=== PATIENT | female | born 1975 | race Two or more races ===

== ENCOUNTER → 2017-04-14 | Outpatient (CLI) | payer OTHER ==
[~2017-04-14] MED LIST: CONRAY-43 43% 50ML VIAL (Q9960) As Ordered ONE; PROHANCE 279.3MG/ML 5ML VIAL (A9576) As Ordered ONE
--- NOTE | 2017-04-14 10:33 | REP ---
MRI shoulder without and with contrast arthrogram 04/14/2017. No comparison study. Clinical history. Chronic left shoulder pain with limited range of motion and instability. Technique: Precontrast coronal T1 with T2 fat suppressed coronal, axial and sagittal sequences. Following gadolinium arthrogram injection, axial 3-D WATS gradient echo, fat suppressed T1 axial, coronal, 8 meters sequence with fat suppressed T2 coronal as well. Findings: The AC joint shows no hypertrophy or impingement. There is some very minimal downsloping of the acromion. At the musculotendinous junction of the rotator cuff, there is hyperintense signal on the T2 sequence vertically and some intrasubstance linear signal in the tendon of the supraspinatus suggesting a linear intrasubstance tear. I do not see a significant subacromial or subdeltoid bursal fluid. There is no glenohumeral joint effusion. Biceps tendon appears to be seated in its groove. Subscapularis tendon grossly intact. The infraspinatus and teres minor tendons and muscles grossly intact. Bony coracoid was unremarkable. The coracoclavicular and coracohumeral ligaments are intact. There is a tiny subchondral cyst greater tuberosity humeral head that may be from peripheral or posterior impingement. After contrast administration, there was no communication of the glenohumeral joint fluid into the subacromial or subdeltoid bursa. The post Gadolinium images show some undermining of the anterior labrum up to the anterior margin of the superior labrum. There is a type 3 anterior capsular insertion on the anterior glenoid. Posterior labrum intact. The superior labrum is otherwise unremarkable. Fluid tracks into the subcoracoid bursa. Impression: 1. There is an anterior labral tear from inferior to it superior suggested. I do not see loose body. A type 3 anterior capsular insertion on the anterior glenoid. 2. There is no Hill-Sachs deformity. A tiny subchondral cyst noted in the posterior aspect greater tuberosity humeral head. 3. Linear intrasubstance signal suggesting intrasubstance tear of the supraspinatus tendon but no full-thickness tear or complete tear, no retraction of the tendon or atrophy of the muscle. 4. Biceps tendon well-seated in its groove. Its proximal course to the biceps labral complex grossly intact. Teres minor, infraspinatus and subscapularis tendons and muscles intact. Signed by Daniel Ross MD 04/14/2017 08:31 P
--- NOTE | 2017-04-14 20:32 | REP ---
Procedure: Left shoulder arthrogram The procedure was performed under the direct supervision of Dr. Ross. History: Left shoulder arthrogram The benefits and risks including but not limited to pain, infection, bleeding and anaphylaxis were explained to the patient and informed consent was obtained. Technique: The left glenohumeral joint space was localized using fluoroscopic guidance. The skin was prepped and draped in a sterile fashion. 1% lidocaine was used as a local anesthetic. Using fluoroscopic guidance a 22 gauge spinal needle was inserted and advanced into the joint. 0.5 ml of Conray 43 was injected to verify placement. 11 ml of a solution containing 20 ml of sterile saline and 0.15 ml of ProHance was injected into the joint. The needle was removed and the patient was taken to MRI for postprocedural imaging. The the patient tolerated the procedure well and there were no immediate complications. 4 seconds of fluoro time was utilized for this procedure. Reviewed by LI Escalera 04/14/2017 12:46 PSigned by Daniel Ross MD 04/14/2017 08:24 P
== END ==
LOC: M RADPRO 07:04
PROVIDERS: ATTEND Student in an Organized Health Care Education/Training Program
DX: M25.512 Pain in left shoulder (principal); M85.60 Other cyst of bone, unspecified site
CPT/HCPCS: 23350; 73223; 77002; A9576; Q9960

== ENCOUNTER 2017-06-30 10:09 | Emergency (ER) | payer OTHER ==
[2017-06-30] MEDS: diphenhydrAMINE INJ 50MG/ML VIAL (J1200) IV (10:54)
[2017-06-30] MEDS: NS 1,000 ML IV (10:54)
[2017-06-30] MEDS: KETOROLAC 30 MG/ML VIAL (J1885) IV (10:54)
[2017-06-30] MEDS: METOCLOPRAMIDE INJ 10MG/2ML VIAL (J2765) IV (10:54)
[2017-06-30] MEDS: DIVALPROEX 250MG *ER* TAB PO (12:30)
== END 2017-06-30 12:49 | disposition home or self-care (01) ==
LOC: M ED 10:09
DX: G44.209 Tension-type headache, unspecified, not intractable (principal); Z79.899 Other long term (current) drug therapy
CPT/HCPCS: J1200

== ENCOUNTER 2017-09-13 10:18 | Emergency (ER) | payer OTHER ==
[2017-09-13] MEDS: KETOROLAC 30 MG/ML VIAL (J1885) IV (10:55)
[2017-09-13] MEDS: METOCLOPRAMIDE INJ 10MG/2ML VIAL (J2765) IV (10:55)
== END 2017-09-13 11:36 | disposition home or self-care (01) ==
LOC: M ED 10:18
DX: R51 Headache (principal); F41.9 Anxiety disorder, unspecified; F32.9 Major depressive disorder, single episode, unspecified; Z79.899 Other long term (current) drug therapy
CPT/HCPCS: J1885

== ENCOUNTER 2018-04-18 08:44 | Day surgery (SDC) | payer OTHER ==
[~2018-04-18 08:44] MED LIST changes: -CONRAY-43 43% 50ML VIAL (Q9960) As Ordered ONE; +LIDOCAINE 2% INJ 100 MG/5 ML SDV (FOR ANES.) As Ordered; +LR 1,000 ML IV; +MIDAZOLAM INJ 2 MG/2 ML VIAL (J2250) As Ordered; -PROHANCE 279.3MG/ML 5ML VIAL (A9576) As Ordered ONE; +PROPOFOL 200 MG/20 ML VIAL As Ordered; +ROCURONIUM BROMIDE 50 MG/5 ML VIAL As Ordered; +fentaNYL 250 MCG/5 ML INJECTION (J3010) As Ordered
[2018-04-18 09:50] LABS: HEMATOCRIT 39.6 % (36.0-47.0); HEMOGLOBIN 12.6 g/dl (12.0-15.5); MEAN CORPUSCULAR HEMOGLOBIN 29.5 pg (27.0-33.0); MEAN CORPUSCULAR HGB CONC 31.8 g/dl (32.0-36.5); MEAN CORPUSCULAR VOLUME 92.7 fl (80.0-96.0); PLATELET COUNT, AUTOMATED 283 10^3/uL (150-450); RED BLOOD COUNT 4.27 10^6/uL (4.00-5.40); RED CELL DISTRIBUTION WIDTH 13.1 % (11.5-14.5); WHITE BLOOD COUNT 6.1 10^3/uL (4.0-10.0)
[2018-04-18 10:16] LABS: ANION GAP 7 MEQ/L (8-16); BLOOD UREA NITROGEN 10 MG/DL (7-18); CALCIUM LEVEL 8.3 MG/DL (8.5-10.1); CARBON DIOXIDE LEVEL 27 MEQ/L (21-32); CHLORIDE LEVEL 105 MEQ/L (98-107); CREATININE FOR GFR 0.76 MG/DL (0.55-1.30); GLOMERULAR FILTRATION RATE > 60.0 (>58); GLUCOSE, FASTING 84 MG/DL (70-100); HCG, SERUM QUANTITATIVE < 1.0 MIU/ML; SODIUM LEVEL 139 MEQ/L (136-145)
[2018-04-18] MEDS: ACETAMINOPHEN 650 MG SUPP As Ordered (11:17)
[2018-04-18] MEDS: ACETAMINOPHEN 650 MG SUPP PR (11:55)
[2018-04-18] MEDS ORDERED: NEOSTIGMINE 10 MG/10 ML VIAL (J2710) As Ordered (12:22)
[2018-04-18] MEDS ORDERED: GLYCOPYRROLATE INJ 0.2 MG/ML 2 ML VIAL As Ordered (12:22)
[2018-04-18] MEDS ORDERED: ONDANSETRON 4MG/2ML VIAL (J2405) As Ordered (12:23)
[2018-04-18] MEDS ORDERED: dexameTHASONE 4 MG/ML 1ML VIAL (J1100) As Ordered ×2 (12:23)
[2018-04-18] MEDS ORDERED: KETOROLAC 60 MG/2 ML VIAL (J1885) As Ordered (12:23)
[2018-04-18] MEDS ORDERED: METOCLOPRAMIDE INJ 10MG/2ML VIAL (J2765) As Ordered (12:23)
[2018-04-18] MEDS: BUPIVACAINE HCL 0.25% 10 ML VIAL As Ordered (12:30)
[2018-04-18] MEDS ORDERED: LR 1,000 ML IV (13:30)
[2018-04-18] MEDS ORDERED: PERCOCET 5MG/325MG TAB PO (13:30)
[2018-04-18] MEDS ORDERED: ONDANSETRON 4MG/2ML VIAL (J2405) IV (13:30)
[2018-04-18] MEDS ORDERED: fentaNYL 100 MCG/2 ML INJECTION (J3010) IV (13:30)
[2018-04-18] MEDS ORDERED: KETOROLAC 30 MG/ML VIAL (J1885) IV (18:00)
== END 2018-04-18 17:00 | disposition home or self-care (01) ==
LOC: M SDC 08:44
DX: Z30.2 Encounter for sterilization (principal); Z87.891 Personal history of nicotine dependence; Z79.899 Other long term (current) drug therapy; F32.9 Major depressive disorder, single episode, unspecified; F41.9 Anxiety disorder, unspecified
CPT/HCPCS: 58661